=== PATIENT | female | born 1980 | race Two or more races ===

== ENCOUNTER 2023-06-20 13:56 | Emergency (ER) | payer OTHER ==
[~2023-06-20] VITALS: Ht 157.5 cm; Wt 100.6 kg
[2023-06-20 15:51] LABS: Basophils # (auto) 0.1 10 ^3/uL (0-0.2); Basophils % (auto) 0.9 % (0.0-2.0); Eosinophils # (auto) 0.2 10 ^3/uL (0-0.8); Eosinophils % (auto) 1.7 % (0.0-7.0); Hematocrit 40.8 % (36.0-46.0); Hemoglobin 13.3 g/dL (12.2-16.2); Lymphocytes % (auto) 14.7 % (10.0-50.0); Mean Corpuscular Hemoglobin 26.2 pg (28.0-32.0); Mean Corpuscular Hgb Conc. 32.6 g/dL (32.0-36.0); Mean Corpuscular Volume 80.3 fL (80.0-100.0); Monocytes # (auto) 0.7 10 ^3/uL (0-1.3); Monocytes % (auto) 4.8 % (0.0-12.0); Neutrophils # (auto) 10.6 10 ^3/uL (1.6-8.6); Neutrophils % (auto) 77.9 % (37.0-80.0); Red Blood Cells 5.08 10^6/uL (4.0-5.20); Red Cell Distribution Width 16.5 % (11.8-14.3); White Blood Cell 13.6 10^3/uL (4.4-10.8)
[2023-06-20 16:14] LABS: Alanine Aminotransferase 14 U/L (7-40); Albumin 4.2 g/dL (3.2-4.8); Alkaline Phosphatase 114 U/L (46-116); Anion Gap 8 (5-15); Aspartate Aminotransferase 15 U/L (13-40); BUN/Creatinine Ratio 16.9 (10.0-20.0); Blood Urea Nitrogen 11 mg/dL (9-23); Calcium 9.7 mg/dL (8.5-10.1); Carbon Dioxide 23 mmol/L (20-30); Chloride 105 mmol/L (98-107); Glucose 252 mg/dL (74-106); Potassium 4.1 mmol/L (3.5-5.1); Sodium 136 mmol/L (136-145)
[2023-06-20 16:15] LABS: Bilirubin, Total 0.4 mg/dL (0.2-1.0); Total Protein 7.4 g/dL (5.7-8.2)
[2023-06-20 16:22] LABS: Lactic Acid w/Reflex 2.7 mmol/L (0.4-2.0)
[2023-06-20 17:02] LABS: Urine Bacteria None Seen /hpf (None Seen)
[2023-06-20 17:21] LABS: Urine Blood 3+ /uL (Negative); Urine Clarity Turbid (Clear); Urine Color Light-Orange (Yellow); Urine Mucus FEW (None Seen); Urine Protein, UAD 1+ (Negative); Urine Specific Gravity 1.038 (1.001-1.035); Urine Urobilinogen Normal (Negative); Urine WBC 44 /hpf (0 - 5); Urine pH 5.5 (5.0-9.0)
[2023-06-20 17:59] VITALS: O2SAT 100
[2023-06-20] MEDS: SODIUM CHLORIDE 0.9% 1,000 ML IV ONE (18:03)
[2023-06-20] MEDS: PIPERACILLIN-TAZOB 3.375GM 100 ML IV ONE (18:03)
[2023-06-20] MEDS: IOHEXOL 300 MG/ML 100ML BOTTLE IJ ONE (18:16)
[2023-06-21] MEDS: metroNIDAZOLE 500MG/100ML 100 ML IV ONE (02:42)
[2023-06-21] MEDS: VANCOMYCIN 1GM/200ML 200 ML IV ONE (02:42)
[2023-06-21 02:45] VITALS: BP 130/86; PULSE 99; RESP 18; TEMP 98.2; O2SAT 96
== END 2023-06-21 03:04 | disposition short-term general hospital (02) ==
LOC: ER 13:56
DX: K52.9 Noninfective gastroenteritis and colitis, unspecified (principal); D72.829 Elevated white blood cell count, unspecified; R74.02 Elevation of levels of lactic acid dehydrogenase [LDH]; R10.84 Generalized abdominal pain; E11.9 Type 2 diabetes mellitus without complications; E78.5 Hyperlipidemia, unspecified; Z98.890 Other specified postprocedural states
CPT/HCPCS: 36415; 74177; 80053; 81001; 81025; 82962; 83605; 83690; 84484; 85025; 87040; 96365; 96366; 99285; J2543; Q9967